=== PATIENT | male | born 1945 | race Caucasian/White ===

== ENCOUNTER 2017-09-01 21:01 | Emergency (ER) | payer OTHER ==
[2017-09-01] MEDS ORDERED: LIDOCAINE 1% MDV 20ML VIAL As Ordered (21:20)
[2017-09-01] MEDS: LIDOCAINE 1% MDV 20ML VIAL IM (21:25)
[2017-09-01] MEDS: CEPHALEXIN 500 MG CAP PO (23:25)
[2017-09-01] MEDS: ADACEL/BOOSTRIX VACCINE (DIPHTH/PERTUSS/ACELL/TETANUS)0.5ML SYR (90715) IM (23:25)
[2017-09-01] MEDS: NORCO 5/325MG TABLET (BULK FOR ED) PO (23:25)
[2017-09-01] MEDS ORDERED: D5W/0.45% SODIUM CHLORIDE 1,000 ML IV (23:30)
[2017-09-01] MEDS ORDERED: PERCOCET 5MG/325MG TAB PO (23:30)
[2017-09-01] MEDS ORDERED: MORPHINE 4 MG/ML 1ML VIAL/SYRINGE (J2270) IV (23:30)
[2017-09-01] MEDS ORDERED: ALBUTEROL 90 MCG/ACT 8GM HFA INHALER INH (23:30)
[2017-09-02] MEDS ORDERED: metFORMIN (GLUCOPHAGE) 500 MG TAB PO (08:00)
[2017-09-02] MEDS ORDERED: hydroCHLOROthiazide 25 MG TAB PO (09:00)
[2017-09-02] MEDS ORDERED: TAMSULOSIN 0.4 MG CAP PO (09:00)
[2017-09-02] MEDS ORDERED: ESCITALOPRAM OXALATE 10 MG TAB (LEXAPRO) PO (09:00)
[2017-09-02] MEDS ORDERED: ASPIRIN 81 MG CHEW TABLET PO (09:00)
[2017-09-02] MEDS ORDERED: LISINOPRIL 5 MG TAB PO (09:00)
[2017-09-02] MEDS ORDERED: ATORVASTATIN 20 MG TAB PO (09:00)
[2017-09-02] MEDS ORDERED: buPROPion **XL** TABLET 150MG (WELLBUTRIN XL) PO (09:00)
== END 2017-09-01 23:50 | disposition home or self-care (01) ==
LOC: M ED 21:01
DX: S60.454A Superficial foreign body of right ring finger, initial encounter (principal); W45.8XXA Other foreign body or object entering through skin, initial encounter; Y92.9 Unspecified place or not applicable; Y93.89 Activity, other specified; Y99.9 Unspecified external cause status; I25.2 Old myocardial infarction; I10 Essential (primary) hypertension; J45.909 Unspecified asthma, uncomplicated; Z87.01 Personal history of pneumonia (recurrent); Z87.891 Personal history of nicotine dependence; Z79.82 Long term (current) use of aspirin; Z79.899 Other long term (current) drug therapy
CPT/HCPCS: 90715